=== PATIENT | female | born 1965 | race Caucasian/White ===

== ENCOUNTER 2017-12-03 10:48 | Inpatient (IN) | payer MEDICAID ==
--- NOTE | 2017-12-03 10:57 | EDPHY ---
H & P Stated Complaint: Chest pain Time Seen by Provider: 12/03/17 10:56 HPI/ROS: CHIEF COMPLAINT: Chest pain HISTORY OF PRESENT ILLNESS: The patient presents the ED for evaluation of chest pain that began at 8 o'clock this morning while walking at her house. The patient described a sharp left-sided substernal pain with some radiation to the back and neck. She states that it was initially intense however has subsided. She currently rates it as a 1/10. She denies any history of fall or trauma. She denies asymmetric calf pain or swelling. She denies fever, cough or congestion. 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 She is chronically anticoagulated with Coumadin. The patient does have a history of non obstructive coronary artery disease diagnosed by CT angiography a year ago. She reports a negative nuclear stress test performed at [facility] in March of 2018. The patient does have a history of frequent ectopy. She had a recent Holter monitor that demonstrated fairly frequent PVCs. REVIEW OF SYSTEMS: A comprehensive 10 point review of systems is otherwise negative aside from elements mentioned in the history of present illness. Source: Patient Exam Limitations: No limitations - Personal History LMP (Females 10-55): Post Menopausal Current Tetanus/Diphtheria Vaccine: Yes - Medical/Surgical History Hx Asthma: No Hx Chronic Respiratory Disease: No Hx Diabetes: Yes Hx Cardiac Disease: Yes Hx Renal Disease: No Hx Cirrhosis: No Hx Alcoholism: No Hx HIV/AIDS: No Hx Splenectomy or Spleen Trauma: No Other PMH: cad/protein c deficiency - Social History Smoking Status: Never smoked - Physical Exam Exam: General Appearance: Obese female, no acute distress Eyes: Pupils equal and round no pallor or injection ENT, Mouth: Mucous membranes moist Respiratory: There are no retractions, lungs are clear to auscultation Cardiovascular: Regular rate and rhythm Gastrointestinal: Abdomen is soft and nontender, no masses, bowel sounds normal Neurological: 5/5 strength all 4 extremities Skin: Warm and dry, no rashes Musculoskeletal: Neck is supple nontender Extremities: symmetrical, full range of motion Constitutional: Initial Vital Signs Temperature (C) 36.6 C 12/03/17 10:52 Heart Rate 60 12/03/17 10:52 Respiratory Rate 18 12/03/17 10:52 Blood Pressure 140/81 H 12/03/17 10:52 O2 Sat (%) 97 12/03/17 10:52 O2 Delivery Mode Room Air Allergies/Adverse Reactions: codeine Allergy (Verified 12/03/17 10:50) iodine Allergy (Verified 12/03/17 10:51) vicryl sutures Allergy (Uncoded 12/03/17 10:51) Home Medications: Medication Instructions Recorded Alpha Lipoic Acid 12/03/17 Calcium 12/03/17 Coumadin 12/03/17 Fenofibrate 12/03/17 Ferrous Gluconate 12/03/17 Gabapentin 12/03/17 Gabapentin 12/03/17 Glucosamine 12/03/17 Liothyronine Sodium 12/03/17 Lisinopril 12/03/17 Magnesium Citrate 12/03/17 Metformin HCl 12/03/17 Metoprolol Succinate 12/03/17 Oxybutynin 12/03/17 Simvastatin 12/03/17 Verapamil 12/03/17 Vitamin B-12 12/03/17 Warfarin Sodium 12/03/17 Medical Decision Making - Diagnostics EKG Interpretation: EKG: Complete interpretation has been separately recorded in the [facility] archive. Summary impression: Sinus rhythm, rate 43, no ST segment elevation or depression noted Imaging Results: Imaging Impressions Chest X-Ray 12/03/17 11:32 Impression: No acute pulmonary disease. ED Course/Re-evaluation: I reviewed the patient's outpatient records and verified a unremarkable nuclear stress test was performed in March 2018. Workup in the emergency department today demonstrates no evidence of arrhythmia or obvious ischemia on her EKG. The patient's troponin is normal. She is therapeutically anticoagulated. The patient presents to the ED with new substernal chest discomfort with concerning features. She has a history of nonobstructive coronary artery disease. The patient is noted to have bradycardia without hypotension in the emergency department. She is on metoprolol. Consultation is made with the Cardiology service who recommends admission to the hospital for serial troponins and consideration of additional risk stratification. I re-evaluated the patient at 1:00 p.m.. She is chest pain-free and comfortable with the plan for admission. 1:15 p.m.: Consultation is made with the hospitalist service. She will be admitted to the PCU unit by Dr. Brewster. Differential Diagnosis: Differential diagnosis considered includes acute coronary syndrome, dehydration , metabolic abnormality, pulmonary embolism - Data Points Laboratory Results: Laboratory Results 12/03/17 11:20 12/03/17 11:20 12/03/17 12/03/17 12/03/17 11:25 11:20 11:20 WBC RBC Hgb Hct MCV MCH MCHC RDW Plt Count MPV Neut % (Auto) Lymph % (Auto) Greer % (Auto) Eos % (Auto) Baso % (Auto) Nucleat RBC Rel Count Absolute Neuts (auto) Absolute Lymphs (auto) Absolute Monos (auto) Absolute Eos (auto) Absolute Basos (auto) Absolute Nucleated RBC Immature Gran % Immature Gran # PT 25.3 SEC H SEC (12.0-15.0) INR 2.30 H (0.83-1.16) Sodium 142 mEq/L mEq/L (135-145) Potassium 4.3 mEq/L mEq/L (3.3-5.0) Chloride 111 mEq/L H mEq/L (97-110) Carbon Dioxide 21 mEq/l L mEq/l (22-31) Anion Gap 10 mEq/L mEq/L (8-16) BUN 20 mg/dL mg/dL (7-23) Creatinine 0.7 mg/dL mg/dL (0.6-1.0) Estimated GFR > 60 Glucose 87 mg/dL mg/dL (70-100) Calcium 9.8 mg/dL mg/dL (8.5-10.4) POC Troponin I 0.00 ng/mL ng/mL (0.00-0.08) 12/03/17 11:20 WBC 5.00 10^3/uL 10^3/uL (3.80-9.50) RBC 4.22 10^6/uL 10^6/uL (4.18-5.33) Hgb 11.9 g/dL L g/dL (12.6-16.3) Hct 35.3 % L % (38.0-47.0) MCV 83.6 fL fL (81.5-99.8) MCH 28.2 pg pg (27.9-34.1) MCHC 33.7 g/dL g/dL (32.4-36.7) RDW 13.0 % % (11.5-15.2) Plt Count 201 10^3/uL 10^3/uL (150-400) MPV 10.9 fL fL (8.7-11.7) Neut % (Auto) 60.6 % % (39.3-74.2) Lymph % (Auto) 30.4 % % (15.0-45.0) Greer % (Auto) 8.2 % % (4.5-13.0) Eos % (Auto) 0.2 % L % (0.6-7.6) Baso % (Auto) 0.4 % % (0.3-1.7) Nucleat RBC Rel Count 0.0 % % (0.0-0.2) Absolute Neuts (auto) 3.03 10^3/uL 10^3/uL (1.70-6.50) Absolute Lymphs (auto) 1.52 10^3/uL 10^3/uL (1.00-3.00) Absolute Monos (auto) 0.41 10^3/uL 10^3/uL (0.30-0.80) Absolute Eos (auto) 0.01 10^3/uL L 10^3/uL (0.03-0.40) Absolute Basos (auto) 0.02 10^3/uL 10^3/uL (0.02-0.10) Absolute Nucleated RBC 0.00 10^3/uL 10^3/uL (0-0.01) Immature Gran % 0.2 % % (0.0-1.1) Immature Gran # 0.01 10^3/uL 10^3/uL (0.00-0.10) PT INR Sodium Potassium Chloride Carbon Dioxide Anion Gap BUN Creatinine Estimated GFR Glucose Calcium POC Troponin I Medications Given: Discontinued Medications Ondansetron HCl (Zofran) 4 mg IVP EDNOW ONE Stop: 12/03/17 11:18 Last Admin: 12/03/17 11:19 Dose: 4 mg Point of Care Test Results: Chemistry 12/03/17 11:25 POC Troponin I 0.00 ng/mL ng/mL (0.00-0.08) Departure - Departure Disposition: [facility] Inpatient Acute Clinical Impression: Chest pain Condition: Good Referrals: Jolynn Knapp MD [Primary Care Provider] - As per Instructions
--- NOTE | 2017-12-03 11:06 | CPEKG ---
Heart Rate: 43 RR Interval: 1395 P-R Interval: 136 QRSD Interval: 88 QT Interval: 456 QTC Interval: 386 P Weldon: 10 QRS Weldon: 2 T Wave Weldon: -14 EKG Severity - BORDERLINE ECG - EKG Impression: SINUS BRADYCARDIA EKG Impression: BORDERLINE T ABNORMALITIES, DIFFUSE LEADS Electronically Signed By: Zeb Winn 03-Dec-2017 11:16:45
[2017-12-03] MEDS ORDERED: ONDANSETRON 4 MG/2 ML VIAL IVP ONE (11:17)
[2017-12-03 11:33] LABS: PLATELET COUNT 201 10^3/uL (150-400)
[2017-12-03 11:41] LABS: INR 2.3 (0.83-1.16); PROTIME(PATIENT) 25.3 SEC (12.0-15.0)
[2017-12-03] MEDS ORDERED: ACETAMINOPHEN 325 MG TAB PO PRN (13:34)
[2017-12-03] MEDS ORDERED: ONDANSETRON DISINTEGRATING 4 MG TAB PO PRN (13:34)
[2017-12-03] MEDS ORDERED: ONDANSETRON 4 MG/2 ML VIAL IVP PRN (13:34)
[2017-12-03] MEDS ORDERED: ASPIRIN EC 325 MG TAB PO ONE (16:30)
[2017-12-03] MEDS ORDERED: ALBUTEROL 60 PUFFS/8 GM MDI IH PRN (16:30)
[2017-12-03] MEDS: metFORMIN HCL 500 MG TAB PO SCH (17:15)
--- NOTE | 2017-12-03 19:33 | PDGENHP ---
History and Physical - Chief Complaint Acute chest pain - History of Present Illness Primary care provider: Dr. Knapp Primary data modeler: Dr. Ludwig Primary pack train driver: Dr. Woo HPI: 52-year-old female presents with acute chest pain characterized as sharp pain located in her left chest substernally, radiating into her back and neck, with onset of symptoms around 8:00 a.m., present immediately upon awakening. She reports the symptoms escalated over the course of the next hour, and she administered some home supplemental oxygen which seemed to alleviate them. She reports some associated fatigue as well as shortness of breath, although these 2 symptoms have been intermittent recently predating her chest pain. She denies ever experiencing similar chest discomfort, and she denies any recent chest trauma, increased shoulder activity. She does report that on the day prior to presentation, she had been experiencing a headache and fatigue, and she had slept during the majority of the day and the night. She reports that she had experienced good comma continuous sleep on the evening prior to the onset of symptoms. She reports no recent change in her medications, and she has been taking all of her home meds as scheduled. History Information - Allergies/Home Medication List Allergies/Adverse Reactions: codeine Allergy (Verified 12/03/17 13:57) Hives iodine Allergy (Verified 12/03/17 13:57) Other-Enter Comments vicryl sutures Allergy (Uncoded 12/03/17 10:51) Home Medications: Albuterol [Proventil Inhaler HFA (*)] 1 - 2 puffs IH DAILY PRN 12/03/17 [Last Taken Unknown] Calcium Carb W/Vit D [Calcium Carb W/Vit D 500/200 (*)] 500 mg PO BID 12/03/17 [ Last Taken 12/03/17] Cholecalciferol Vit D3 [Vitamin D3 2000 units tab (OTC)] 2,000 units PO DAILY [Last Taken 12/03/17] Cyanocobalamin [Vitamin B12 (*)] 1,500 mcg PO BID 12/03/17 [Last Taken 12/03/17] Fenofibrate [Tricor 145 mg (*)] 145 mg PO HS 12/03/17 [Last Taken 12/02/17] Ferrous Sulfate [Ferrous Sulf 325 MG (*)] 325 mg PO HS 12/03/17 [Last Taken ] Gabapentin [Neurontin 300 MG (*)] 600 mg PO HS 12/03/17 [Last Taken 12/02/17] Glucosamine Sulfate [Glucosamine Sulfate 500 MG (*)] 1,000 mg PO BID 12/03/17 [ Last Taken 12/03/17] Herbals/Supplements -Info Only 1 ea PO DAILY 12/03/17 [Last Taken Unknown] Levothyroxine [Synthroid 100 mcg (*)] 100 mcg PO DAILY 12/03/17 [Last Taken ] Liothyronine Sodium [Cytomel 25 mcg (*)] 25 mcg PO DAILY 12/03/17 [Last Taken ] Lisinopril [Zestril 5 mg (*)] 5 mg PO HS 12/03/17 [Last Taken 12/02/17] Magnesium Oxide [Magnesium Oxide 400 mg (*)] 400 mg PO DAILY 12/03/17 [Last Taken 12/03/17] Magnesium Oxide [Magnesium Oxide 400 mg (*)] 800 mg PO HS 12/03/17 [Last Taken 12/02/17] Metoprolol Succinate Xr [Toprol Xl 50 mg (*)] 25 mg PO BID 12/03/17 [Last Taken 12/03/17] Oxybutynin Chloride 5 mg PO BID 12/03/17 [Last Taken 12/03/17] Simvastatin [Zocor] 10 mg PO HS 12/03/17 [Last Taken 12/02/17] Verapamil ER [Calan SR/ER 120MG (*)] 120 mg PO DAILY 12/03/17 [Last Taken 12/03] Warfarin Sodium [Coumadin 4MG (*)] 4 mg PO HS 12/03/17 [Last Taken 12/02/17] metFORMIN HCL [Glucophage 500 mg (*)] 1,000 mg PO DAILY18 12/03/17 [Last Taken 12/02/17] metFORMIN HCL [Glucophage 500 mg (*)] 500 mg PO DAILY 12/03/17 [Last Taken 12/03] I have personally reviewed and updated: family history, medical history, social history, surgical history - Past Medical History Additional medical history: Protein C deficiency with bilateral pulmonary emboli , currently on Coumadin. Dural sinus thromboses. Nonobstructive coronary artery disease based on CT coronary angio in 2016. Nonischemic cardiomyopathy in July of 2015 with recovery of ejection fraction to approximately 53% in 2017, and a reportedly normal nuclear stress test in March of 2017. Frequent symptomatic PVCs with most recent evaluation on Holter monitor between September and October of 2017, currently on dual abdullahi blocking therapy. Gait instability and balance issues present since 2015 - Surgical History Reports: no pertinent surgical hx - Family History Additional family history: Father with myocardial infarction in his 70s - Social History Smoking Status: Never smoked Alcohol Use: None Drug Use: None Additional social history: Reports that she swims 3 times a week, does not experience chest pain with swimming or note recent reduction in exercise tolerance Review of Systems Review of Systems: ROS: 10pt was reviewed & negative except for what was stated in HPI & below Constitutional: Reports: other (Fatigue) Cardiac: Reports: chest pain Respiratory: Reports: shortness of breath Physical Exam Physical Exam: Temp Pulse Resp BP Pulse Ox 37.0 C 46 L 16 125/65 H 96 12/03/17 16:33 12/03/17 16:33 12/03/17 16:33 12/03/17 16:33 12/03/17 16:33 Constitutional: no apparent distress, not in pain, chronically ill appearing, obese, No uncomfortable Eyes: PERRL, anicteric sclera, EOMI Ears, Nose, Mouth, Throat: moist mucous membranes, hearing normal, ears appear normal, no oral mucosal ulcers Cardiovascular: no murmur, rub, or gallop, bradycardia, No systolic murmur, No irregularly irregular, No tachycardia, No edema Respiratory: no respiratory distress, no rales or rhonchi, clear to auscultation Gastrointestinal: normoactive bowel sounds, soft, non-tender abdomen, no palpable masses Skin: other (Dry, pale, thinning hair, doughy appearing) Musculoskeletal: other (No tenderness palpation over the left pectoralis, no tenderness over the left deltoid or biceps, no tenderness over the left sub a.c. Or posterior rotator cuff) Neurologic: AAOx3, No weakness, No facial droop Psychiatric: interacting appropriately, not anxious, not encephalopathic, thought process linear Lab Data & Imaging Review 12/03/17 11:20 12/03/17 11:20 WBC 5.00 10^3/uL (3.80-9.50) 12/03/17 11:20 RBC 4.22 10^6/uL (4.18-5.33) 12/03/17 11:20 Hgb 11.9 g/dL (12.6-16.3) L 12/03/17 11:20 Hct 35.3 % (38.0-47.0) L 12/03/17 11:20 MCV 83.6 fL (81.5-99.8) 12/03/17 11:20 MCH 28.2 pg (27.9-34.1) 12/03/17 11:20 MCHC 33.7 g/dL (32.4-36.7) 12/03/17 11:20 RDW 13.0 % (11.5-15.2) 12/03/17 11:20 Plt Count 201 10^3/uL (150-400) 12/03/17 11:20 MPV 10.9 fL (8.7-11.7) 12/03/17 11:20 Neut % (Auto) 60.6 % (39.3-74.2) 12/03/17 11:20 Lymph % (Auto) 30.4 % (15.0-45.0) 12/03/17 11:20 Walworth % (Auto) 8.2 % (4.5-13.0) 12/03/17 11:20 Eos % (Auto) 0.2 % (0.6-7.6) L 12/03/17 11:20 Baso % (Auto) 0.4 % (0.3-1.7) 12/03/17 11:20 Nucleat RBC Rel Count 0.0 % (0.0-0.2) 12/03/17 11:20 Absolute Neuts (auto) 3.03 10^3/uL (1.70-6.50) 12/03/17 11:20 Absolute Lymphs (auto) 1.52 10^3/uL (1.00-3.00) 12/03/17 11:20 Absolute Monos (auto) 0.41 10^3/uL (0.30-0.80) 12/03/17 11:20 Absolute Eos (auto) 0.01 10^3/uL (0.03-0.40) L 12/03/17 11:20 Absolute Basos (auto) 0.02 10^3/uL (0.02-0.10) 12/03/17 11:20 Absolute Nucleated RBC 0.00 10^3/uL (0-0.01) 12/03/17 11:20 Immature Gran % 0.2 % (0.0-1.1) 12/03/17 11:20 Immature Gran # 0.01 10^3/uL (0.00-0.10) 12/03/17 11:20 PT 25.3 SEC (12.0-15.0) H 12/03/17 11:20 INR 2.30 (0.83-1.16) H 12/03/17 11:20 Sodium 142 mEq/L (135-145) 12/03/17 11:20 Potassium 4.3 mEq/L (3.3-5.0) 12/03/17 11:20 Chloride 111 mEq/L (97-110) H 12/03/17 11:20 Carbon Dioxide 21 mEq/l (22-31) L 12/03/17 11:20 Anion Gap 10 mEq/L (8-16) 12/03/17 11:20 BUN 20 mg/dL (7-23) 12/03/17 11:20 Creatinine 0.7 mg/dL (0.6-1.0) 12/03/17 11:20 Estimated GFR > 60 12/03/17 11:20 Glucose 87 mg/dL (70-100) 12/03/17 11:20 Calcium 9.8 mg/dL (8.5-10.4) 12/03/17 11:20 POC Troponin I 0.00 ng/mL (0.00-0.08) 12/03/17 13:06 Troponin I < 0.012 ng/mL (0.000-0.034) 12/03/17 16:10 Visualized and Interpreted Chest x-ray results: Yes Chest X-Ray results: no infiltrate Visualized and Interpreted EKG results: Yes EKG Interpretation: Positive for: other (Sinus bradycardia with T-wave inversion in leads V2 to V4) Assessment & Plan Assessment: 52-year-old female presenting with acute chest pain Plan: 1. Chest pain. Acute, new problem this provider, further workup indicated. Rule out for acute coronary syndrome with cycling of the patient's cardiac enzymes, currently no evidence of ST elevations or depressions on EKG -monitor for tachyarrhythmias or pathologic heart block on telemetry -I suspect that the patient's chest pain is atypical in nature given her absence of exercised induced angina, recent negative stress test within the past 9 months -discussed with Shannan Jarvis from Cardiology, she does not suggest additional cardiac risk stratification given recent normal stress test and recommends ruling out with cardiac enzymes -will empirically give 325 of aspirin until rule out complete, if further issues arise, reconsult with Cardiology tomorrow 2. Sinus bradycardia. Present on EKG and telemetry, most likely iatrogenic in the setting of dual abdullahi blocking therapy for water described as frequent symptomatic PVCs -I am somewhat concerned the patient may be over medicating for what are likely benign, yet symptomatic, PVCs -monitor on tele overnight, currently heart rate 50-60 -if patient is demonstrating more significant, prolonged, or symptomatic bradycardia or evolution into heart block, consult with Cardiology for med guidance moving forward -continue her current home medications and monitor affect, as continuing them at their current doses will provide us with valuable information as to the degree of bradycardia at they are currently producing 3. Protein C deficiency. History of bilateral pulmonary emboli and dural sinus thrombosis -reviewed outside records including 11/28/2017 lab values, INR 1.9, otherwise patient's INR has been therapeutic -current INR 2.3 -likelihood of her chest pain being secondary to pulmonary emboli is exceptionally low with her consistent management of INR as an outpatient -continue Coumadin at present dosing 4. History of nonischemic cardiomyopathy. Patient reports most recent ejection fraction 53% in 2017 -hold on repeating echocardiogram at this time, as the patient does not demonstrate any evidence of congestive heart failure 5. Hypothyroidism. Patient has physical exam evidence of hypothyroidism, check TSH to ensure adequate replacement, cont synthroid/T3 6. Diabetes mellitus. Continue metformin Diet. Cardiac Prophylaxis. High risk, currently on Coumadin Code. Full, parents are her MD POA Disposition. Anticipated discharge 12/04, pending further workup of conditions outlined above.
[2017-12-03] MEDS: MAGNESIUM OXIDE 400 MG TAB PO SCH (21:25)
[2017-12-03] MEDS: GABAPENTIN 300 MG CAP PO SCH (21:25)
[2017-12-03] MEDS: WARFARIN SODIUM 4 MG TAB PO SCH (21:25)
[2017-12-03] MEDS: CYANO/VITAMIN B12 1000 MCG TAB PO SCH (21:26)
[2017-12-03] MEDS: CALCIUM CARB W/VIT D 500 MG TAB PO SCH (21:26)
[2017-12-03] MEDS: GLUCOSAMINE SULF 500 MG CAP PO SCH (21:26)
[2017-12-03] MEDS: FENOFIBRATE 145 MG TAB PO SCH (21:26)
[2017-12-03] MEDS: PRAVASTATIN SODIUM 20 MG TAB PO SCH (21:26)
[2017-12-03] MEDS: FERROUS SULFATE 325 MG TAB PO SCH (21:26)
[2017-12-03] MEDS: OXYBUTYNIN CHLORIDE 5 MG TAB PO SCH (21:26)
[2017-12-03] MEDS: METOPROLOL SUCCINATE XR 50 MG TAB PO SCH (21:27)
[2017-12-03] MEDS: LISINOPRIL 5 MG TAB PO SCH (21:30)
[2017-12-04 04:08] LABS: INR 2.41 (0.83-1.16); PROTIME(PATIENT) 26.2 SEC (12.0-15.0)
[2017-12-04] MEDS: OXYBUTYNIN CHLORIDE 5 MG TAB PO SCH ×2 (08:36→21:05)
[2017-12-04] MEDS: LIOTHYRONINE SODIUM 25 MCG TAB PO SCH (08:36)
[2017-12-04] MEDS: CALCIUM CARB W/VIT D 500 MG TAB PO SCH ×2 (08:36→21:04)
[2017-12-04] MEDS: GLUCOSAMINE SULF 500 MG CAP PO SCH ×2 (08:36→21:04)
[2017-12-04] MEDS: CYANO/VITAMIN B12 1000 MCG TAB PO SCH ×2 (08:37→21:05)
[2017-12-04] MEDS: MAGNESIUM OXIDE 400 MG TAB PO SCH ×2 (08:37→21:04)
[2017-12-04] MEDS: metFORMIN HCL 500 MG TAB PO SCH ×3 (08:38→16:36)
[2017-12-04] MEDS: CHOLECALCIFEROL VIT D3 2,000 UNITS TAB/CAP PO SCH (08:39)
[2017-12-04] MEDS: LEVOTHYROXINE 100 MCG TAB PO SCH (08:44)
[2017-12-04] MEDS ORDERED: Herbals/Supplements -Info Only PO SCH (09:00)
[2017-12-04] MEDS ORDERED: VERAPAMIL ER 120 MG TAB PO SCH (09:00)
[2017-12-04] MEDS: METOPROLOL SUCCINATE XR 50 MG TAB PO SCH (10:52)
[2017-12-04] MEDS ORDERED: IOPAMIDOL (ISOVUE 370) 100 ML BTL IV ONE (13:35)
--- NOTE | 2017-12-04 14:58 | ASMTCASEMG ---
Living Arrangements What is your living Answers: Alone arrangement? Who do you live with? Type Of Residence What kind of residence do Answers: House you live in? Discharge Plan Comments Coordination Status Comments Notes: Pts case discussed in morning rounds. Pt is a 52 y/o female admitted for chest pain. OT is recommending outpatient follow up. No other needs identified at this time. CM available for changes. Plan: Independent Date Signed: 12/04/2017 02:57 PM Electronically Signed By:HARRIS Madison
--- NOTE | 2017-12-04 18:22 | HOSPPROG ---
Hospitalist Progress Note Assessment/Plan: # chest pain - CTA with non-obstructive disease - cont medical management # bradycardia - quite significant, unclear if symptomatic - hold metop and verapamil and follow HR overnight # hypotension - will hold anti-hypertensives and follow # PE/protein C deficiency - cont warfarin # NICM - consider repeating echo tomorrow based on HR and BP # hypothyroid - TSH very low; has follow up this week with endo - will defer changing meds # DM2 - hold metformin given recent contrast Subjective: pain resolved; somehwt dizzy, difficult to tell if this is a new finding; seen with her parents Objective: Vital Signs Temp Pulse Resp BP Pulse Ox 36.7 C 46 L 16 95/40 L 93 12/04/17 15:09 12/04/17 15:09 12/04/17 15:09 12/04/17 15:09 12/04/17 15:09 Laboratory Results 12/04/17 03:36 12/03/17 12/04/17 12/05/17 05:59 05:59 05:59 Intake Total 1000 Output Total 1200 Balance -200 PT 26.2 SEC (12.0-15.0) H 12/04/17 03:36 INR 2.41 (0.83-1.16) H 12/04/17 03:36 chart reviewed tele [address] cor reviewed - Physical Exam Constitutional: no apparent distress, appears nourished Eyes: anicteric sclera Ears, Nose, Mouth, Throat: hearing normal Cardiovascular: No edema Respiratory: no respiratory distress Gastrointestinal: No distension Genitourinary: No ryan in urethra Skin: warm Musculoskeletal: full muscle strength Neurologic: AAOx3 Psychiatric: not anxious ICD10 Worksheet Patient Problems: Problems Problem Status Onset Chest pain Acute
[2017-12-04] MEDS: WARFARIN SODIUM 4 MG TAB PO SCH (21:04)
[2017-12-04] MEDS: GABAPENTIN 300 MG CAP PO SCH (21:04)
[2017-12-04] MEDS: PRAVASTATIN SODIUM 20 MG TAB PO SCH (21:04)
[2017-12-04] MEDS: FERROUS SULFATE 325 MG TAB PO SCH (21:04)
[2017-12-04] MEDS: LISINOPRIL 5 MG TAB PO SCH (21:05)
[2017-12-04] MEDS: FENOFIBRATE 145 MG TAB PO SCH (21:05)
--- NOTE | 2017-12-05 08:44 | PDMN ---
Medical Necessity Medical necessity: Change to IP, as of 12/04/17, per MD; los >2 mn for ongoing management of bradycardia w/hypotension & dizziness; admit for further cardiac monitoring, med management, possible echo & therapy; hx protein C deficiency w/ PE on AC, cardiomyopathy, CAD, gait instability & diabetes; per progress note & order 12/04/17
[2017-12-05] MEDS: CALCIUM CARB W/VIT D 500 MG TAB PO SCH (09:15)
[2017-12-05] MEDS: CYANO/VITAMIN B12 1000 MCG TAB PO SCH (09:16)
[2017-12-05] MEDS: OXYBUTYNIN CHLORIDE 5 MG TAB PO SCH (09:16)
[2017-12-05] MEDS: GLUCOSAMINE SULF 500 MG CAP PO SCH (09:16)
[2017-12-05] MEDS: MAGNESIUM OXIDE 400 MG TAB PO SCH (09:16)
[2017-12-05] MEDS: LEVOTHYROXINE 100 MCG TAB PO SCH (09:16)
[2017-12-05] MEDS: CHOLECALCIFEROL VIT D3 2,000 UNITS TAB/CAP PO SCH (09:16)
[2017-12-05] MEDS: LIOTHYRONINE SODIUM 25 MCG TAB PO SCH (09:16)
[2017-12-05 11:11] VITALS: BP 122/67
--- NOTE | 2017-12-05 11:53 | PDCARPN ---
Cardiology Progress Note Chief Complaint: cp/bradycardia Assessment/Plan: Assessment: 52-y/o F with a very long, complicated medical history with chronic disease states are obesity BMI 43, htn, SCHF, dyslipidemia, MONCHO/CPAP, LGL, PVCs, DM and clotting disorder. H/o a dural sinus thrombus in 1990 related to mastoiditis. In 1995, she had PEs and was diagnosed with Protein C deficiency. She is now on lifelong anticoagulation with Warfarin. In 2014, she started to note a balance disorder manifested as a vertigo. In 2014, She was found to have very frequent PVCs, LGL and short bursts of SVT. She had a CACS which was elevated. They did not want to undertake LHC given all her comorbidities, and so CTA coronary arteries was obtained which she states did not show obstructive disease. P/w cp starting 12/03 upon awakening at 8 AM. This is a sharp L sided cp that persisted throughout AM. #. cp: has ruled out via enzymes and ECG CTA with mild-mod obstruction continue medical management consider ASA and titration of statin in outpatient will address in O/P setting #. bradycardia: help Metoprolol and Verapamil which has improved HR will continue to hold #. PVCs: abdullahi agents used due to high burden of PVCs No PVCs seen on the monitor #. hypotension: improved Plan: - OK to d/c with outpatient follow up 12/05/17 11:44 Subjective: Feeling better. No cp. Dizziness improved. Reviewed/Discussed With: family, hospitalist (Dr. Santamaria) Objective: Vital Signs (8 Hrs) Temp Pulse Resp BP Pulse Ox 12/05/17 11:10 98.3 F 52 L 17 122/67 H 93 12/05/17 08:00 98.8 F 50 L 12 120/61 94 12/05/17 07:32 48 L 12/05/17 04:00 97.9 F 56 L 18 110/56 L 94 Intake/Output (24 Hrs) 12/04/17 12/05/17 12/06/17 05:59 05:59 05:59 Intake Total 0 Output Total 1000 Balance 1050 Intake: Oral (ml) 0 Output: Urine (ml) 1000 Toilet 1000 Result Diagrams: 12/03/17 11:20 12/04/17 03:36 Telemetry: reviewed/SB - Physical Exam Constitutional: no apparent distress Eyes: anicteric sclera Ears, Nose, Mouth, Throat: moist mucous membranes Cardiovascular: regular rate and rhythm, systolic murmur Respiratory: clear to auscultate bilat, no crackles Skin: no rashes, other (mild venostatic changes) Musculoskeletal: no muscular tenderness Neurologic: AAOx3 Psychiatric: cooperative, interactive Lymph, Heme, Immunologic: no ecchymoses ICD10 Worksheet Patient Problems: Problems Problem Status Onset Chest pain Acute
--- NOTE | 2017-12-05 15:58 | GDS ---
[f rep st] DISCHARGE SUMMARY ALL DIAGNOSES: 1. Chest pain. 2. Nonobstructive coronary artery disease seen on CT coronary. 3. Bradycardia. 4. Hypertension. 5. PE and protein C deficiency. 6. Nonischemic cardiomyopathy. 7. Hypothyroid. 8. Diabetes mellitus type 2. HOSPITAL COURSE: A 52-year-old female with multiple medical problems, admitted with chest pain. Giv en her body habitus, a CT coronary was recommended. This showed nonobstructive coronary artery disea se. Her chest pain has resolved completely. She has been on verapamil, as well as metoprolol to sup press PVCs. She was quite bradycardic on admission with a heart rate in the 30s. Her abdullahi blockers were held, and her heart rate had improved to the 50s. She was also notably slightly hypotensive. She actually feels better with less fatigue. Discussed with Shannan of Cardiology who recommends holdin g these medicines. She has a followup appointment with Shannan in 2 weeks. Her TSH was found to be michelle y low here. She is followed by an drug safety scientist. She will follow up with her drug safety scientist tiffanie mtz changing her Synthroid dose. Apparently, the dose was changed quite recently as well. She is discharged to home in stable condition. BILLING: I spent more than 30 minutes on the day of discharge coordinating care. /[id number]/MODL
== END 2017-12-05 14:21 | disposition home or self-care (01) | DRG 198 ==
LOC: F2W 14:30 → OBSVTOIN 12-04 18:10
PROVIDERS: ADMIT Internal Medicine; ATTEND Student in an Organized Health Care Education/Training Program
DX: R07.9 Chest pain, unspecified (principal); I25.10 Atherosclerotic heart disease of native coronary artery without angina pectoris; R00.1 Bradycardia, unspecified; I10 Essential (primary) hypertension; D68.59 Other primary thrombophilia; I42.9 Cardiomyopathy, unspecified; E03.9 Hypothyroidism, unspecified; E11.9 Type 2 diabetes mellitus without complications; Z86.711 Personal history of pulmonary embolism
CPT/HCPCS: 84481-90; 84484-PO; 96374; 97166-GO; 97530-GO; G0378; J2405; Q9967

== ENCOUNTER → 2018-05-24 | Outpatient (CLI) | payer OTHER | LOC: FIMAGING 09:49 | PROVIDERS: ATTEND Orthopaedic Surgery | DX: Z01.818 Encounter for other preprocedural examination (principal); M17.11 Unilateral primary osteoarthritis, right knee ==

== ENCOUNTER 2018-05-31 08:55 | Inpatient (IN) | payer MEDICAID, OTHER ==
--- NOTE | 2018-05-31 06:12 | PDHPUP ---
History & Physical Update H&P update statement: This history and physical update is based on an assessment of the patient which was completed after admission or registration (within 24 hours), but prior to the surgery/procedure. H&P update: H&P reviewed & patient examined, no change in patient's condition since H&P completed
--- NOTE | 2018-05-31 08:44 | PDANEPAE ---
ANE History of Present Illness knee OA ANE Past Medical History - Cardiovascular History Hx Hypertension: Yes Hx Arrhythmias: Yes Hx Chest Pain: No Hx Coronary Artery / Peripheral Vascular Disease: Yes Hx CHF / Valvular Disease: Yes Hx Palpitations: No Cardiovascular History Comment: PREV HEART CATH. LGL SYNDROME. PVC'S - Pulmonary History Hx COPD: No Hx Asthma/Reactive Airway Disease: Yes Hx Recent Upper Respiratory Infection: No Hx Oxygen in Use at Home: No Hx Sleep Apnea: Yes Sleep Apnea Screening Result - Last Documented: Positive Pulmonary History Comment: ASTHMA TRIGGERS URI'S. PREV PE 1995. MONCHO USES C-PAP - Neurologic History Hx Cerebrovascular Accident: No Hx Seizures: No Hx Dementia: No - Endocrine History Hx Diabetes: Yes Endocrine History Comment: NIDDM. HYPERTHYROID - Renal History Hx Renal Disorders: Yes Renal History Comment: OVER ACTIVE BLADDER - Liver History Hx Hepatic Disorders: No - Neurological & Psychiatric Hx Hx Neurological and Psychiatric Disorders: Yes Neurological / Psychiatric History Comment: INTERMITTENT MIGRAINES. BRAIN CLOT 1990 RESIDUAL DOUBLE VISION - Cancer History Hx Cancer: No - Congenital Disorder History Hx Congenital Disorders: No - GI History Hx Gastrointestinal Disorders: No - Other Health History Other Health History: BALANCE DISORDER SINCE 2015. PROTEIN C DEFICIENCY. CHRONIC ANEMIA. DOUBLE VISION - Chronic Pain History Chronic Pain: Yes (NANCY KNEE'S) - Surgical History Prior Surgeries: ABD HERNIA REPAIR 2011. T&A. SINUS/SEPTOPLASTY X2. REDUCTION MAMMOPLASTY. REMVL BREAST CYSTS. LT KNEE SCOPE. D&C ANE Review of Systems Review of Systems: - Exercise capacity METS (RN): 3 METS ANE Patient History - Allergies Allergies/Adverse Reactions: codeine Allergy (Verified 12/03/17 13:57) Hives iodine Allergy (Verified 12/03/17 13:57) Other-Enter Comments vicryl sutures Allergy (Uncoded 12/03/17 10:51) - Home Medications Home medications: home medication list seen and reviewed Home Medications: Fenofibrate [Tricor 145 mg (*)] 145 mg PO HS 12/03/17 [Last Taken 05/30/18] Ferrous Sulfate [Ferrous Sulf 325 MG (*)] 325 mg PO HS 12/03/17 [Last Taken ] Gabapentin [Neurontin 300 MG (*)] 600 mg PO HS 12/03/17 [Last Taken 05/30/18] Liothyronine Sodium [Cytomel 25 mcg (*)] 25 mcg PO DAILY 12/03/17 [Last Taken 07:45] Lisinopril [Zestril 5 mg (*)] 5 mg PO HS 12/03/17 [Last Taken 05/29/18] Warfarin Sodium [Coumadin 4MG (*)] 4 mg PO HS 12/03/17 [Last Taken 05/23/18] metFORMIN HCL [Glucophage 500 mg (*)] 1,000 mg PO HS 12/03/17 [Last Taken ] metFORMIN HCL [Glucophage 500 mg (*)] 500 mg PO DAILY 12/03/17 [Last Taken 05/30] Atorvastatin Calcium [Lipitor 40 mg (*)] 40 mg PO HS 05/21/18 [Last Taken ] Fesoterodine Fumarate [Toviaz (*)] 4 mg PO DAILY 05/21/18 [Last Taken 05/31/18 07:45] Magnesium Oxide [Magnesium Oxide 400 mg (*)] 400 mg PO DAILY 05/21/18 [Last Taken 05/30/18] Nebivolol HCl [Bystolic 5 mg (*)] 5 mg PO DAILY 05/21/18 [Last Taken 05/31/18 07 :45] PARoxetine HCL [Paxil] 40 mg PO DAILY 05/21/18 [Last Taken 05/31/18 07:45] Enoxaparin [Lovenox 120 MG (*)] 120 mg SQ BID 05/24/18 [Last Taken 05/30/18 10: 00] Levothyroxine [Synthroid 50 mcg (*)] 50 mcg PO DAILY06 05/24/18 [Last Taken 07:45] Magnesium Oxide [Magnesium Oxide 400 mg (*)] 800 mg PO HS 05/24/18 [Last Taken 05/31/18 07:45] - NPO status NPO Status: no food or drink >8 hours - Anes Hx Anes Hx: no prior problems - Smoking Hx Smoking Status: Never smoked ANE Labs/Vital Signs - Vital Signs Height: 162.56 cm Weight: 107.955 kg ANE Physical Exam - Airway Neck exam: FROM Mallampati Score: Class 2 Mouth exam: normal dental/mouth exam - Pulmonary Pulmonary: no respiratory distress - Cardiovascular Cardiovascular: regular rate and rhythym - ASA Status ASA Status: III ANE Anesthesia Plan Anesthesia Plan: spinal Regional Anesthesia: adductor canal FNB
[~2018-05-31 08:55] MED LIST: ROPIVACAINE 0.2% 80 MG, EPINEPHrine 0.2 MG, KETOROLAC TROMETHAMINE 30 MG in SYRINGE 0 ML IU ONE; TRANEXAMIC ACID 3,000 MG in NS (SYRINGE) 50 ML IRR ONE; TRANEXAMIC ACID 3,000 MG/50 ML BAG IRR ONE
[2018-05-31] MEDS ORDERED: ceFAZolin 2 GM/DEXTROSE 100 ML IV ONE (09:03)
[2018-05-31] MEDS ORDERED: FAMOTIDINE 20 MG TAB PO ONE (09:03)
[2018-05-31] MEDS ORDERED: ACETAMINOPHEN 325 MG TAB PO ONE (09:03)
[2018-05-31 10:00] LABS: INR 1.05 (0.83-1.16); PROTIME(PATIENT) 13.9 SEC (12.0-15.0)
[2018-05-31] MEDS ORDERED: MIDAZOLAM 2 MG/2 ML VIAL IVP ONE (10:45)
[2018-05-31] MEDS ORDERED: MIDAZOLAM 2 MG/2 ML VIAL ONE (10:46)
[2018-05-31] MEDS ORDERED: PROPOFOL/EMULSION 500 MG/50 ML BOTTLE IV ONE (10:53)
[2018-05-31] MEDS ORDERED: PROPOFOL 200 MG/20 ML VIAL ONE (10:53)
[2018-05-31] MEDS ORDERED: PROMETHAZINE HCL 25 MG/ML INJ IVP PRN (11:09)
[2018-05-31] MEDS ORDERED: diphenhydrAMINE 25 MG CAP PO PRN (11:09)
[2018-05-31] MEDS ORDERED: TEMAZEPAM 15 MG CAP PO PRN (11:09)
[2018-05-31] MEDS ORDERED: POLYETHYLENE GLYCOL 3350 17 GM PKT PO PRN (11:09)
[2018-05-31] MEDS ORDERED: METOCLOPRAMIDE 10 MG/2 ML VIAL IVP PRN (11:09)
[2018-05-31] MEDS ORDERED: PROMETHAZINE HCL 25 MG SUPPR PR PRN (11:09)
[2018-05-31] MEDS ORDERED: DIPHENOXYLATE/ATROPINE LOMOTIL 1 TAB PO PRN (11:09)
[2018-05-31] MEDS ORDERED: ONDANSETRON 4 MG/2 ML VIAL IVP PRN ×2 (11:09→11:27)
[2018-05-31] MEDS ORDERED: LACTULOSE 20 GM/30 ML UDCUP PO PRN (11:09)
[2018-05-31] MEDS ORDERED: MAGNESIUM HYDROXIDE 30 ML UDCUP PO PRN (11:09)
[2018-05-31] MEDS ORDERED: ONDANSETRON DISINTEGRATING 4 MG TAB PO PRN (11:09)
[2018-05-31] MEDS ORDERED: BISACODYL 10 MG SUPP PR PRN (11:09)
[2018-05-31] MEDS ORDERED: D50W 25 GM/50 ML SYR IVP PRN (11:18)
[2018-05-31] MEDS ORDERED: fentaNYL 100 MCG/2 ML INJ IVP PRN (11:27)
[2018-05-31] MEDS ORDERED: NALOXONE HCL 0.4 MG/ML INJ IVP PRN (11:27)
[2018-05-31] MEDS ORDERED: ROPIVACAINE HCL 150 MG/30 ML INJ ONE (11:29)
[2018-05-31] MEDS ORDERED: LR 1,000 ML IV SCH (11:30)
--- NOTE | 2018-05-31 12:24 | POSTOPPROG ---
Post Op Note Date of Operation: 05/31/18 Surgeon: Migdalia Mccarthy Support Team Assoc: Marissa Mccarthy PA-C Anesthesiologist: Dr Aguilera Anesthesia: Spinal, Other (Specify) (adductor canal block) Pre-op Diagnosis: right knee OA Post-op Diagnosis: same Indication: right knee pain Procedure: right TKA robot assisted, sensor assisted Findings: severe right knee OA Inf/Abcess present in the surg proc area at time of surgery?: No EBL: 50-100
--- NOTE | 2018-05-31 12:36 | PDMN ---
Medical Necessity Medical necessity: [facility] [place] S700 Knee Arthroplasty, Total: 53 yo s/p R TKA, inpt status due to complicated medical history including DM2, HTN, hypothyroid, PE/ DVT, anemia, balance disorder, ventriular myopathy , history of acute heart failure with ejection fracture of 50%, ASA III.
--- NOTE | 2018-05-31 12:40 | POSTANESTH ---
Post Anesthetic Evaluation Cardiovascular Status: Similar to Pre-Op Cond Respiratory Status: Similar to Pre-op Cond. Level of Consciousness/Mental Status: Alert and Oriented Pain Control: Adequate, Prn Tx Ordered Nausea/Vomiting Control: Adequate, Prn Tx Ordered Complications Possibly Related to Anesthesia: None Noted (AC in PACU)
[2018-05-31] MEDS: ACETAMINOPHEN 325 MG TAB PO SCH ×3 (15:14→23:48)
[2018-05-31] MEDS: INSULIN REGULAR HUMAN 100 UNIT/ML UNIT SC SCH ×3 (15:15→21:29)
[2018-05-31] MEDS: CYCLOBENZAPRINE 10 MG TAB PO PRN ×2 (15:38→23:48)
[2018-05-31] MEDS: WARFARIN SODIUM 4 MG TAB PO SCH (15:38)
--- NOTE | 2018-05-31 17:48 | PDHOSCONS ---
History and Physical - Chief Complaint consultation for medical mgmt - History of Present Illness this is a 53 yo female who had a right sided TKA due to serve OA today. She has a complicated medical hx and we are asked to provide consultation. She is noted to have bradycardia and reports a hx of this She is not having palpitations she denies cp, sob, n/v. pain is well controlled pmhx: HTN, NIDDM, Obesity, OA, HLD, bradycardia, PVCs, chronic AC, PE's, Protein C deficiency, non ischemic cardiomyopathy, CAD, MONCHO, Depression, Hypothyroidism SocHx: no tobacco, Etoh. former NICU nurse FmHx: non contributory History Information - Allergies/Home Medication List Allergies/Adverse Reactions: codeine Allergy (Verified 12/03/17 13:57) Hives iodine Allergy (Verified 12/03/17 13:57) Other-Enter Comments vicryl sutures Allergy (Uncoded 12/03/17 10:51) Home Medications: Fenofibrate [Tricor 145 mg (*)] 145 mg PO HS 12/03/17 [Last Taken 05/30/18] Ferrous Sulfate [Ferrous Sulf 325 MG (*)] 325 mg PO HS 12/03/17 [Last Taken ] Gabapentin [Neurontin 300 MG (*)] 600 mg PO HS 12/03/17 [Last Taken 05/30/18] Liothyronine Sodium [Cytomel 25 mcg (*)] 25 mcg PO DAILY 12/03/17 [Last Taken 07:45] Lisinopril [Zestril 5 mg (*)] 5 mg PO HS 12/03/17 [Last Taken 05/29/18] Warfarin Sodium [Coumadin 4MG (*)] 4 mg PO HS 12/03/17 [Last Taken 05/23/18] metFORMIN HCL [Glucophage 500 mg (*)] 1,000 mg PO HS 12/03/17 [Last Taken ] metFORMIN HCL [Glucophage 500 mg (*)] 500 mg PO DAILY 12/03/17 [Last Taken 05/30] Atorvastatin Calcium [Lipitor 40 mg (*)] 40 mg PO HS 05/21/18 [Last Taken ] Fesoterodine Fumarate [Toviaz (*)] 4 mg PO DAILY 05/21/18 [Last Taken 05/31/18 07:45] Magnesium Oxide [Magnesium Oxide 400 mg (*)] 400 mg PO DAILY 05/21/18 [Last Taken 05/30/18] Nebivolol HCl [Bystolic 5 mg (*)] 5 mg PO DAILY 05/21/18 [Last Taken 05/31/18 07 :45] PARoxetine HCL [Paxil] 40 mg PO DAILY 05/21/18 [Last Taken 05/31/18 07:45] Enoxaparin [Lovenox 120 MG (*)] 120 mg SQ BID 05/24/18 [Last Taken 05/30/18 10: 00] Levothyroxine [Synthroid 50 mcg (*)] 50 mcg PO DAILY06 05/24/18 [Last Taken 07:45] Magnesium Oxide [Magnesium Oxide 400 mg (*)] 800 mg PO HS 05/24/18 [Last Taken 05/31/18 07:45] I have personally reviewed and updated: medical history, social history - Past Medical History Additional medical history: Protein C deficiency with bilateral pulmonary emboli , currently on Coumadin. Dural sinus thromboses. Nonobstructive coronary artery disease based on CT coronary angio in 2015. Nonischemic cardiomyopathy in July of 2015 with recovery of ejection fraction to approximately 53% in 2017, and a reportedly normal nuclear stress test in March of 2017. Frequent symptomatic PVCs with most recent evaluation on Holter monitor between September and October of 2017, currently on dual abdullahi blocking therapy. Gait instability and balance issues present since 2014 - Surgical History Reports: no pertinent surgical hx - Family History Additional family history: Father with myocardial infarction in his 70s - Social History Smoking Status: Never smoked Additional social history: Reports that she swims 3 times a week, does not experience chest pain with swimming or note recent reduction in exercise tolerance Review of Systems Review of Systems: ROS: 10pt was reviewed & negative except for what was stated in HPI & below Physical Exam Physical Exam: Temp Pulse Resp BP Pulse Ox 36.6 C 48 L 16 118/56 L 100 05/31/18 16:30 05/31/18 16:30 05/31/18 16:30 05/31/18 16:30 05/31/18 16:30 O2 (L/minute) 2 Constitutional: no apparent distress Eyes: PERRL Ears, Nose, Mouth, Throat: moist mucous membranes, hearing normal Cardiovascular: bradycardia, No edema Respiratory: no respiratory distress, no rales or rhonchi, clear to auscultation Gastrointestinal: normoactive bowel sounds, soft, non-tender abdomen Skin: warm Neurologic: AAOx3 Psychiatric: interacting appropriately, not anxious, not encephalopathic Lymph, Heme, Immunologic: No petechiae Lab Data & Imaging Review PT 13.9 SEC (12.0-15.0) 05/31/18 09:03 INR 1.05 (0.83-1.16) 05/31/18 09:03 POC Glucose 87 mg/dL (70-100) 05/31/18 12:57 Assessment & Plan Assessment: #s/p Right sided TKA -post op care per primary #Bradycardia #HTN #non ischemic Cardiomyopathy #chronic AC, Hx of PE's, Hx of Protein C Deficiency #MONCHO #NIDDM #HLD #Depression: Paxil #Hypothyroidism Plan: Hold BB Hold Lisinopril tonight Telemetry Not on diuretics at home. Monitor closely Hold Metformin. Cont ISS, Check A1C Cont Statin Restart Warfarin Lovenox for DVT proph while Warfarin is restarted Levothyroxine CPAP Pain mgmt thank you for this consult. we will follow along.
[2018-05-31] MEDS: ceFAZolin 2 GM/DEXTROSE 100 ML IV SCH (18:14)
[2018-05-31] MEDS: ATORVASTATIN CALCIUM 40 MG TAB PO SCH (20:16)
[2018-05-31] MEDS: GABAPENTIN 300 MG CAP PO SCH (20:16)
[2018-05-31] MEDS: SENNOSIDES/DOCUSATE SODIUM TAB PO SCH (20:16)
[2018-05-31] MEDS: MAGNESIUM OXIDE 400 MG TAB PO SCH (20:18)
[2018-05-31] MEDS: FAMOTIDINE 20 MG TAB PO SCH (20:18)
[2018-05-31] MEDS: FENOFIBRATE 145 MG TAB PO SCH (20:18)
[2018-05-31] MEDS: FERROUS SULFATE 325 MG TAB PO SCH (20:18)
[2018-05-31] MEDS ORDERED: metFORMIN HCL 500 MG TAB PO SCH (21:00)
[2018-05-31] MEDS ORDERED: LISINOPRIL 5 MG TAB PO SCH (21:00)
[2018-06-01] MEDS: ceFAZolin 2 GM/DEXTROSE 100 ML IV SCH (01:38)
[2018-06-01] MEDS: LEVOTHYROXINE 50 MCG TAB PO SCH (04:59)
[2018-06-01] MEDS: ACETAMINOPHEN 325 MG TAB PO SCH ×4 (04:59→23:30)
[2018-06-01 05:17] LABS: PLATELET COUNT 198 10^3/uL (150-400)
[2018-06-01 05:24] LABS: INR 1.16 (0.83-1.16)
[2018-06-01] MEDS: INSULIN REGULAR HUMAN 100 UNIT/ML UNIT SC SCH ×4 (07:44→22:39)
[2018-06-01] MEDS: LIOTHYRONINE SODIUM 25 MCG TAB PO SCH (08:20)
[2018-06-01] MEDS: FAMOTIDINE 20 MG TAB PO SCH ×2 (08:20→21:59)
[2018-06-01] MEDS: FESOTERODINE FUMARATE 4 MG TAB.ER PO SCH (08:21)
[2018-06-01] MEDS: SENNOSIDES/DOCUSATE SODIUM TAB PO SCH ×2 (08:21→21:59)
[2018-06-01] MEDS: PARoxetine HCL 20 MG TAB PO SCH (08:24)
[2018-06-01] MEDS: oxyCODONE IR 5 MG TAB PO PRN ×4 (08:28→21:58)
[2018-06-01] MEDS: CYCLOBENZAPRINE 10 MG TAB PO PRN ×2 (08:28→21:58)
[2018-06-01] MEDS ORDERED: ENOXAPARIN 40 MG/0.4 ML SYR SC SCH (09:00)
[2018-06-01] MEDS ORDERED: metFORMIN HCL 500 MG TAB PO SCH (09:00)
[2018-06-01] MEDS ORDERED: NEBIVOLOL HCL 5 MG TAB PO SCH (09:00)
[2018-06-01] MEDS: MAGNESIUM OXIDE 400 MG TAB PO SCH ×2 (11:03→21:59)
--- NOTE | 2018-06-01 14:50 | HOSPPROG ---
Hospitalist Progress Note Assessment/Plan: #s/p Right sided TKA -post op care per primary #Bradycardia #HTN #non ischemic Cardiomyopathy #chronic AC, Hx of PE's, Hx of Protein C Deficiency #MONCHO #NIDDM #HLD #Depression: Paxil #Hypothyroidism Plan: Hold BB. consider restarting soon. May want to start at a lower dose. She is still has bradycardia and feel that she yordy benefit from another day of monitoring and adjusting meds. Hold Lisinopril Telemetry Not on diuretics at home. Monitor closely Hold Metformin. Cont ISS, Check A1C Cont Statin Restart Warfarin Lovenox for DVT proph while Warfarin is restarted Levothyroxine CPAP Pain mgmt thank you for this consult. we will follow along. Subjective: no cp or sob. still with bradycardia. no palpitations. bp ok Objective: Vital Signs Temp Pulse Resp BP Pulse Ox 36.6 C 45 L 15 119/62 95 06/01/18 11:37 06/01/18 11:37 06/01/18 11:37 06/01/18 11:37 06/01/18 11:37 Laboratory Results 06/01/18 04:46 06/01/18 04:46 05/31/18 06/01/18 06/02/18 05:59 05:59 05:59 Intake Total 1420 940 Output Total 1780 400 Balance -360 540 PT 15.0 SEC (12.0-15.0) 06/01/18 04:46 INR 1.16 (0.83-1.16) 06/01/18 04:46 - Physical Exam Constitutional: no apparent distress Eyes: PERRL Ears, Nose, Mouth, Throat: moist mucous membranes Cardiovascular: regular rate and rhythym, edema Respiratory: no respiratory distress Gastrointestinal: normoactive bowel sounds, soft, non-tender abdomen Skin: warm Neurologic: AAOx3 Psychiatric: interacting appropriately, not anxious, not encephalopathic Lymph, Heme, Immunologic: No petechiae ICD10 Worksheet Patient Problems: Problems Problem Status Onset Primary localized osteoarthritis of right knee Acute Chest pain Acute
[2018-06-01] MEDS: WARFARIN SODIUM 4 MG TAB PO SCH (15:55)
--- NOTE | 2018-06-01 21:19 | SOAPPROG ---
SOAP Progress Note Assessment/Plan: Assessment: patient is doing well POD 1 s/p R TKA pain is well controlled on oral pain meds VTE ppx: patient is high risk with history of multiple PEs, chronic anticoagulation. Pharmacist ordered lovenox 40mg BID along with resuming patient's homedose of 4 mg of coumadin. INR today 1.16. monitor closely. bradycardia: appreciate hospitalist input and management of comorbidities Anemia: level expected initially postop. asymptomatic. continue to monitor closely. d/c planning: patient has great family support at home and once medically clear , may discharge to home once released from PT. most likely Sunday. Plan: 06/01/18 21:16 06/01/18 21:19 Subjective: Gabriella is doing well, mild pain, denies SOB, chest pain and N/V Objective: Vital Signs Temp Pulse Resp BP Pulse Ox 36.7 C 58 L 16 115/61 94 06/01/18 19:57 06/01/18 20:27 06/01/18 20:27 06/01/18 19:57 06/01/18 20:27 Laboratory Results 06/01/18 04:46 06/01/18 04:46 05/31/18 06/01/18 06/02/18 05:59 05:59 05:59 Intake Total 1420 1940 Output Total 1780 800 Balance -360 1140 PT 15.0 SEC (12.0-15.0) 06/01/18 04:46 INR 1.16 (0.83-1.16) 06/01/18 04:46 RLE: Incision dressing is clean and dry, NVI, +pf/df ICD10 Worksheet Patient Problems: Problems Problem Status Onset Primary localized osteoarthritis of right knee Acute Chest pain Acute
[2018-06-01] MEDS: ENOXAPARIN 40 MG/0.4 ML SYR SC SCH (21:58)
[2018-06-01] MEDS: ATORVASTATIN CALCIUM 40 MG TAB PO SCH (21:59)
[2018-06-01] MEDS: GABAPENTIN 300 MG CAP PO SCH (21:59)
[2018-06-01] MEDS: FENOFIBRATE 145 MG TAB PO SCH (21:59)
[2018-06-01] MEDS: FERROUS SULFATE 325 MG TAB PO SCH (21:59)
[2018-06-02] MEDS: oxyCODONE IR 5 MG TAB PO PRN ×3 (01:42→12:24)
[2018-06-02] MEDS: ACETAMINOPHEN 325 MG TAB PO SCH ×2 (05:34→12:20)
[2018-06-02] MEDS: LEVOTHYROXINE 50 MCG TAB PO SCH (05:34)
[2018-06-02 06:10] LABS: INR 1.2 (0.83-1.16); PROTIME(PATIENT) 15.4 SEC (12.0-15.0)
[2018-06-02] MEDS: INSULIN REGULAR HUMAN 100 UNIT/ML UNIT SC SCH ×2 (08:44→13:07)
[2018-06-02] MEDS: FAMOTIDINE 20 MG TAB PO SCH (09:05)
[2018-06-02] MEDS: SENNOSIDES/DOCUSATE SODIUM TAB PO SCH (09:05)
[2018-06-02] MEDS: FESOTERODINE FUMARATE 4 MG TAB.ER PO SCH (09:05)
[2018-06-02] MEDS: LIOTHYRONINE SODIUM 25 MCG TAB PO SCH (09:05)
[2018-06-02] MEDS: PARoxetine HCL 20 MG TAB PO SCH (09:06)
[2018-06-02] MEDS: ENOXAPARIN 40 MG/0.4 ML SYR SC SCH (09:06)
[2018-06-02] MEDS: MAGNESIUM OXIDE 400 MG TAB PO SCH (09:06)
[2018-06-02 11:57] VITALS: BP 133/60
[2018-06-02] MEDS: CYCLOBENZAPRINE 10 MG TAB PO PRN (12:21)
--- NOTE | 2018-06-02 13:51 | HOSPPROG ---
Hospitalist Progress Note Assessment/Plan: #s/p Right sided TKA -post op care per primary #Bradycardia #HTN #non ischemic Cardiomyopathy #chronic AC, Hx of PE's, Hx of Protein C Deficiency #MONCHO #NIDDM #HLD #Depression: Paxil #Hypothyroidism Plan: Ok to restart Nebivolol but have changed the dose to 2.5mg daily, first dose now. OK to discharge on this dose. Ok to restart Lisinopril tonight Ok to restart Metformin AC per Orthopedics cont CPAP cont all other home meds From a medical perspective, this patient is cleared for discharge per the primary team thank you for this consultation. Please call if questions. . Subjective: no cp or sob. HR is still sushil but improving. wants to be discharged Objective: Vital Signs Temp Pulse Resp BP Pulse Ox 36.7 C 54 L 16 133/60 H 96 06/02/18 11:55 06/02/18 11:55 06/02/18 11:55 06/02/18 11:55 06/02/18 11:55 Laboratory Results 06/02/18 05:04 06/01/18 04:46 06/01/18 06/02/18 06/03/18 05:59 05:59 05:59 Intake Total 1420 3340 350 Output Total 1780 800 Balance -360 2540 350 PT 15.4 SEC (12.0-15.0) H 06/02/18 05:04 INR 1.20 (0.83-1.16) H 06/02/18 05:04 - Physical Exam Constitutional: no apparent distress Eyes: PERRL Ears, Nose, Mouth, Throat: moist mucous membranes, hearing normal Cardiovascular: regular rate and rhythym, no murmur, rub, or gallop, systolic murmur Respiratory: no respiratory distress, no rales or rhonchi, clear to auscultation Gastrointestinal: normoactive bowel sounds, soft, non-tender abdomen Genitourinary: no bladder fullness Skin: warm Neurologic: AAOx3 Psychiatric: interacting appropriately, not anxious, not encephalopathic Lymph, Heme, Immunologic: No petechiae ICD10 Worksheet Patient Problems: Problems Problem Status Onset Primary localized osteoarthritis of right knee Acute Chest pain Acute
--- NOTE | 2018-06-02 13:57 | GOP ---
DATE OF OPERATION: 05/31/18 SURGEON: Demetra Mccarthy MD RESERVOIR CARETAKER: KIRAN Mata. ANESTHESIA: Spinal. PREOPERATIVE DIAGNOSIS: Right knee osteoarthritis. POSTOPERATIVE DIAGNOSIS: Right knee osteoarthritis. PROCEDURE PERFORMED: Right total knee arthroplasty with computer navigation, robotic assist. FINDINGS: ESTIMATED BLOOD LOSS: 30 cc. INDICATIONS: The patient is a 53-year-old female with severe and progressive pain and deformity of the right knee unresponsive to conservative care. The risks and benefits of surgical intervention were explained in detail. DESCRIPTION OF PROCEDURE: The patient was brought to the operative room and placed on the table in the supine position. Spinal anesthesia was induced without difficulty. A pneumatic tourniquet was applied about the right proximal thigh, and the leg was prepped and draped in a sterile fashion. The leg zabala was applied. After exsanguination by elevation the tourniquet was inflated to 250 mmHg. Incision was made anterior medial from the tibial tuberosity to a point 2 cm proximal to the superior pole of the patella. Medial parapatellar arthrotomy was carried out from the superior pole of the patella and posteriorly in line with the fibers of the Type II VMO. The medial collateral ligament was elevated and the infrapatellar fat pad was resected. The patella was everted and the articular surface was excised. A 32 mm patellar button was placed. Attention was turned first to the distal aspect of the femur. After exposure of the femur, 2 half pins were placed for fixation of the femoral array. In a similar fashion, 2 pins were placed anteromedial on the tibia for fixation of the tibial array. External land marking and registration of the hip center were performed without difficulty. Internal femoral and tibial registration were carried out without difficulty and the femoral and tibial checkpoints were placed and verified for accuracy. Attention was turned to the femur. The foot print for the size 2 femoral component was cut with the saw using the Yerdle robotic system and verified for accuracy against the CT based plan. In a similar fashion, the saw was used to cut the footprint for the size 3 tibial component using the JP system and verified for accuracy against the CT based plan. The tibial articular surface was excised without difficulty, followed by the intercondylar box cut. The knee was extended and the remnants of the medial and lateral meniscus were excised. The posterior capsule was injected with ropivacaine, epinephrine and Toradol. A size 3 tibial tray was positioned. Trial reduction was then carried out. There was excellent range of motion, alignment, and stability using the 3 x 9 mm polyethylene. All trials were then removed. The joint was thoroughly irrigated and carefully dried. The Press Fit components were implanted. The permanent 3 x 9 mm polyethylene was placed without difficulty. The tourniquet was deflated and all bleeders were coagulated. The wound was thoroughly irrigated and closed using interrupted sutures of 2-0 Vicryl for the joint capsule. The subcu was closed with 3-0 Vicryl and the skin with 4-0 Monocryl. Dermabond and Steri-Strips were applied followed by a compressive dressing. The patient was then moved from the operating room to the recovery room in good condition, having tolerated the procedure well. PATHOLOGY: Severe medial and patellofemoral osteoarthritis. /[id number]/MODL MTDD
[2018-06-02] MEDS ORDERED: NEBIVOLOL HCL 5 MG TAB PO SCH (14:00)
--- NOTE | 2018-06-02 14:26 | SOAPPROG ---
SOAP Progress Note Assessment/Plan: Assessment: patient is doing well POD 2 s/p R TKA pain is well controlled on oral pain meds VTE ppx: patient is high risk with history of multiple PEs, chronic anticoagulation. Pharmacist ordered lovenox 40mg BID along with resuming patient's homedose of 4 mg of coumadin. INR today 1.2 monitor closely. bradycardia: appreciate hospitalist input and management of comorbidities Anemia: level expected initially postop. asymptomatic. continue to monitor closely. d/c planning: patient is medically clear, may discharge to home once released from PT today Plan: 06/01/18 21:16 06/01/18 21:19 06/02/18 14:25 Subjective: patient is doing well today, denies SOB, chest pain and n/v Objective: Vital Signs Temp Pulse Resp BP Pulse Ox 36.7 C 54 L 16 133/60 H 96 06/02/18 11:55 06/02/18 11:55 06/02/18 11:55 06/02/18 11:55 06/02/18 11:55 Laboratory Results 06/02/18 05:04 06/01/18 04:46 06/01/18 06/02/18 06/03/18 05:59 05:59 05:59 Intake Total 1420 3340 350 Output Total 1780 800 Balance -360 2540 350 PT 15.4 SEC (12.0-15.0) H 06/02/18 05:04 INR 1.20 (0.83-1.16) H 06/02/18 05:04 incision dressing is clean and dry, NVI, +pf/df ICD10 Worksheet Patient Problems: Problems Problem Status Onset Primary localized osteoarthritis of right knee Acute Chest pain Acute
[2018-06-02] MEDS ORDERED: WARFARIN SODIUM 3 MG TAB PO ONE (16:00)
[2018-06-03] MEDS ORDERED: WARFARIN SODIUM 4 MG TAB PO SCH (16:00)
--- NOTE | 2018-06-06 16:23 | GDS ---
ADMISSION DIAGNOSIS: Right hip osteoarthritis. DISCHARGE DIAGNOSIS: Right hip osteoarthritis. PROCEDURE: Right total hip arthroplasty. VTE PROPHYLAXIS: Recommend resuming patient's Coumadin and Lovenox. BRIEF DESCRIPTION OF HOSPITAL STAY: Patient was admitted for an elective joint arthroplasty. The pa demetrio tolerated the procedure well and has passed physical therapy. The patient was given appropriat e antibiotic prophylaxis and venous thromboembolism prophylaxis. The patient's pain was well control led on oral pain medication, patient was holding down food, and had urinated. Decision was made to d ischarge the patient. The patient was given post-operative prescriptions pre-operatively. PLAN: Follow up as scheduled in Dr. Mccarthy's office in 3 weeks. Patient was discharged to home. /[id number]/MODL
== END 2018-06-02 15:45 | disposition home or self-care (01) | DRG 470 ==
LOC: F3N 08:55
PROVIDERS: ADMIT Orthopaedic Surgery; ATTEND Orthopaedic Surgery
DX: M17.11 Unilateral primary osteoarthritis, right knee (principal); I10 Essential (primary) hypertension; E11.9 Type 2 diabetes mellitus without complications; E66.9 Obesity, unspecified; E78.5 Hyperlipidemia, unspecified; R00.1 Bradycardia, unspecified; E03.9 Hypothyroidism, unspecified; Z86.718 Personal history of other venous thrombosis and embolism; Z86.711 Personal history of pulmonary embolism; Z79.01 Long term (current) use of anticoagulants
CPT/HCPCS: 84481-90; 97110-GP; 97116-GP; 97161-GP; G8978-GP-CH; G8978-GP-CJ; G8979-GP-CH; G8980-GP-CH; J0171; J0690; J1650; J1885; J2250; J2704; J2795

== ENCOUNTER → 2018-11-01 | Outpatient (CLI) | payer OTHER | LOC: FIMAGING 15:00 | PROVIDERS: ATTEND Orthopaedic Surgery | DX: M17.12 Unilateral primary osteoarthritis, left knee (principal) ==

== ENCOUNTER 2018-11-22 09:43 | Inpatient (IN) | payer OTHER | END 2018-11-23 12:29 | disposition home or self-care (01) | LOC: F3E 09:43 → F3N 10:23 ==